=== PATIENT | female | born 1995 | race American Indian/Alaskan Native ===

== ENCOUNTER 2017-10-06 09:23 | Emergency (ER) | payer OTHER ==
[2017-10-06 10:17] VITALS: BP 131/70
--- NOTE | 2017-10-06 10:27 | Emergency Department Report ---
Chief Complaint: OB/Uterine Contractions Stated Complaint: ABDOMINAL CRAMPS - HPI History of Present Illness: This is a 22-year-old female nontoxic, well nourished in appearance, no acute signs of distress presents to the ED with c/o of abdominal cramping x1 day. Patient stated she is 14 weeks . Patient denies f/u with [employer]. Patient she has been very stressed and last night felt a pop in her abd and then cramping with vaginal bleeding. PAtient denies any dizziness, headache, nausea, vomiting, chest pain, shortness of breath, stiff neck numbness or tingling. - Exam Vital Signs: Vital Signs 10/06/17 10:12 Temperature 98.4 F Pulse Rate 91 H Respiratory 18 Rate Blood Pressure 131/70 O2 Sat by Pulse 98 Oximetry Physical Exam: GENERAL: The patient is a well-developed, well-nourished female in no apparent distress. Patient is alert and acting appropriately for age. Alert and oriented 3, no apparent distress, normal gait, atraumatic. HEART: Regular rate and rhythm without murmur, rubs or gallops. No reproducible. S1, S2 present, regular rate and rhythm without murmur, no rubs, no gallops. ABDOMEN: Soft, nontender, and nondistended. Positive bowel sounds. No hepatosplenomegaly was noted. No guarding or rebound tenderness, negative epigastric bruit. Negative psoas sign, negative summers sign, negative McBurneys sign MSE screening note: Focused history and physical exam performed. Due to findings the following was ordered: 1- This initial assessment/diagnostic orders/clinical plan/ treatment(s) is/are subject to change based on pt's health status, clinical progression and re- assessment by fellow clinical providers in the ED. Further treatment and workup at subsequent clinical provers discretion. Patient/guardians urged not to elope from ED as their condition may be serious if not clinically assessed and managed. 2-CBC, BMP, UA, quantitative serum 3-ultrasound OB/transvaginal 4-type/screen ED Disposition for MSE Condition: Stable
[2017-10-06 10:56] LABS: Basophils % (Auto) 0.2 % (0.0-1.8); Eosinophils % (Auto) 0.7 % (0.0-4.3); Hematocrit 37.8 % (30.3-42.9); Hemoglobin 12.7 gm/dl (10.1-14.3); Mean Corpuscular HGB Conc 34 % (30-34); Mean Corpuscular Hemoglobin 31 pg (28-32); Mean Corpuscular Volume 91 fl (79-97); Platelet Count 251 K/mm3 (140-440); Red Blood Count 4.15 M/mm3 (3.65-5.03); Red Cell Distribution Width 13.4 % (13.2-15.2); White Blood Count 10.5 K/mm3 (4.5-11.0)
[2017-10-06 11:06] LABS: Anion Gap 19 mmol/L; BUN/Creatinine Ratio 23; Blood Urea Nitrogen 9 mg/dL (7-17); Calcium 9.1 mg/dL (8.4-10.2); Carbon Dioxide 20 mmol/L (22-30); Chloride 100.6 mmol/L (98-107); Glucose 85 mg/dL (65-100); Potassium 3.9 mmol/L (3.6-5.0); Sodium 136 mmol/L (137-145)
--- NOTE | 2017-10-07 10:21 | Ultrasound Report ---
FINAL REPORT EXAM: US OB TRANSABDOMINAL AND TRANSVAGINAL HISTORY: abd pain w vag bleeding TECHNIQUE: Pelvis ultrasound using 2 different techniques: TRANSABDOMINAL and TRANSVAGINAL PRIORS: None. FINDINGS: There is a single viable intrauterine with documented cardiac activity. Multiple ultrasound measurements are made to determine a composite gestational age. Nonspecific slightly low FL/HC ratio of 11.9, lower range limit 13.5. Other ratios are within normal limits. There is no evidence of placenta previa or abruption. The maternal cervix is closed. The quantity of visualized amniotic fluid is within normal limits. No sonographic abnormality in the visualized portion of the anatomy. Heart rate (beats per minute): 160 position: Transverse with head to maternal left Placental position: Posterior, grade 0 Maternal cervix length (cm): 4.1, measured with endovaginal imaging Ultrasound estimated gestational age: 14 weeks 4 days Ultrasound estimated delivery date: 04/02/2018 LMP estimated gestational age: 15 weeks 0 days LMP estimated delivery date: 03/30/2018 IMPRESSION: Single viable intrauterine with the above parameters Nonspecific slightly low FL/HC ratio
--- NOTE | 2017-10-07 10:21 | Ultrasound Report ---
FINAL REPORT EXAM: US OB > = 14 WEEKS FETUS, TRANSABDOMINAL AND ENDOVAGINAL HISTORY: abd pain w vag bleeding TECHNIQUE: Pelvis ultrasound using 2 different techniques: TRANSABDOMINAL and TRANSVAGINAL PRIORS: None. FINDINGS: There is a single viable intrauterine with documented cardiac activity. Multiple ultrasound measurements are made to determine a composite gestational age. Nonspecific slightly low FL/HC ratio of 11.9, lower range limit 13.5. Other ratios are within normal limits. There is no evidence of placenta previa or abruption. The maternal cervix is closed. The quantity of visualized amniotic fluid is within normal limits. No sonographic abnormality in the visualized portion of the anatomy. Heart rate (beats per minute): 160 position: Transverse with head to maternal left Placental position: Posterior, grade 0 Maternal cervix length (cm): 4.1, measured with endovaginal imaging Ultrasound estimated gestational age: 14 weeks 4 days Ultrasound estimated delivery date: 04/02/2018 LMP estimated gestational age: 15 weeks 0 days LMP estimated delivery date: 03/30/2018 IMPRESSION: Single viable intrauterine with the above parameters Nonspecific slightly low FL/HC ratio
== END 2017-10-06 10:31 | disposition left against medical advice (07) ==
LOC: ED 09:23
DX: R10.9 Unspecified abdominal pain (principal); Z53.21 Procedure and treatment not carried out due to patient leaving prior to being seen by health care provider
CPT/HCPCS: 36415; 76805; 76817; 80048; 84702; 85025; 86850; 86900; 86901

== ENCOUNTER 2017-12-26 07:21 | Outpatient (CLI) | payer OTHER ==
[2017-12-26] MEDS ORDERED: LACTATED RINGERS 500 ML IV ONE (07:28)
[2017-12-26 08:42] LABS: Bacteria,Urine 1+ /HPF (Negative); Bilirubin,Urine NEG (Negative); Blood,Urine NEG (Negative); Color,Urine Yellow (Yellow); Mucus,Urine FEW /HPF; Nitrite,Urine NEG (Negative); Protein,Urine <15 mg/dL mg/dL (Negative); RBC,Urine < 1.0 /HPF (0.0-6.0); Urobilinogen,Urine < 2.0 mg/dL (<2.0); WBC,Urine < 1.0 /HPF (0.0-6.0)
[2017-12-26 09:44] VITALS: BP 101/57
[2017-12-26 09:44] LABS: Basophils # (Auto) 0.1 K/mm3 (0.0-0.1); Basophils % (Auto) 0.6 % (0.0-1.8); Eosinophils % (Auto) 0.1 % (0.0-4.3); Hematocrit 31.6 % (30.3-42.9); Hemoglobin 10.9 gm/dl (10.1-14.3); Lymphocytes # (Auto) 0.9 K/mm3 (1.2-5.4); Lymphocytes % (Auto) 7.8 % (13.4-35.0); Mean Corpuscular HGB Conc 34 % (30-34); Mean Corpuscular Hemoglobin 32 pg (28-32); Mean Corpuscular Volume 94 fl (79-97); Monocytes # (Auto) 0.8 K/mm3 (0.0-0.8); Monocytes % (Auto) 6.6 % (0.0-7.3); Platelet Count 248 K/mm3 (140-440); Red Blood Count 3.37 M/mm3 (3.65-5.03); Red Cell Distribution Width 13.1 % (13.2-15.2)
[2017-12-26 10:08] LABS: Alanine Aminotransferase 16 units/L (7-56); Albumin 3.6 g/dL (3.9-5); BUN/Creatinine Ratio 18; Blood Urea Nitrogen 7 mg/dL (7-17); Calcium 8.3 mg/dL (8.4-10.2); Hemolysis Index 12
[2017-12-26 10:15] LABS: Rubella IgG Antibody Immune (Immune)
[2017-12-26 10:51] LABS: Hepatitis C Virus Antibody Non-Reactive (NonReactive)
--- NOTE | 2017-12-26 11:08 | Ultrasound Report ---
Gestation: Single Position: Cephalic Amniotic Fluid: FRANCA = 16.3 cm Placenta: Left lateral Placental Grade: 0 Heart Rate: 159 BPM Cervical length: 3.5 cm (Normal > 3 cm) NEUROANATOMY VISUALIZED: Normal Choroid Plexus Cisterna Magnum Cerebellum Lateral Ventricle ANATOMY VISUALIZED: Normal Stomach Kidneys Bladder Diaphragm 4 Chamber Heart Heart 3 Vessel Cord Abd. Cord Insert SPINE VISUALIZED: Normal Longitudinal Transverse AP Limited spine due to position. BPD: 6.3 cm = 25 w 5 d HC: 24.6 cm = 26 w 6 d AC: 31.3 cm = 25 w 6 d FL: 4.8 cm = 96 w 1 d HC/AC Ratio: 73.6 Cephalic Index: 1.1 EFW percent 53. Estimated Weight: 883 grams LMP: 06/29/17 Clinical age = 25 w 5 d EDC: 04/05/18 US Gest. Age = 26 w 1 d EDC: 04/02/18 BIOPHYSICAL PROFILE: 2 - breathing movements 2 - movements 2 - posture and tone 2 - Qualitative amniotic fluid volume 8 - TOTAL SCORE OF POSSIBLE 8 Heart Rate (bpm) 159
--- NOTE | 2017-12-26 13:00 | Event Note ---
Date: 12/26/17 22 yo repeat c/s who has had no care due to no insurance. She says Medicaid said she was not eligible but she doesn't know why. She had GI cramps from [facility] with vomiting and diarrhea and thought she might be in labor. Min irreg contractions on monitor, BPP 8/8 with normal FHT. Previous c/ s by Dr Henson here last year. Uterus not tender at all and pt in no distress. Expressed understanding that she needed to get care and straighten out insurance situation. All work up and labs WNL MBT A pos. D/C home with instructions to hydrate.
== END 2017-12-26 13:00 | disposition home or self-care (01) ==
LOC: TRG 07:21
PROVIDERS: ATTEND Obstetrics & Gynecology
DX: O47.02 False labor before 37 completed weeks of gestation, second trimester (principal); Z3A.26 26 weeks gestation of pregnancy
CPT/HCPCS: 36415; 59025; 76805; 76819; 80053; 81001; 85025; 86592; 86706; 86762; 86803; 87806